=== PATIENT | female | born 1990 | race Two or more races ===

== ENCOUNTER 2020-01-19 22:43 | Emergency (ER) | payer MEDICAID ==
[~2020-01-19] VITALS: Ht 170.2 cm; Wt 48.5 kg
[2020-01-19 22:52] VITALS: BP 113/79
== END 2020-01-19 23:07 ==
LOC: ER 22:46
DX: F10.129 Alcohol abuse with intoxication, unspecified (principal); Y90.9 Presence of alcohol in blood, level not specified; V49.9XXA Car occupant (driver) (passenger) injured in unspecified traffic accident, initial encounter; Y93.89 Activity, other specified; Y92.488 Other paved roadways as the place of occurrence of the external cause; Y99.8 Other external cause status